=== PATIENT | male | born 1960 | race Caucasian/White ===

== ENCOUNTER 2018-05-14 14:55 | Inpatient (IN) | payer SELFPAY ==
[~2018-05-14] VITALS: Ht 172.7 cm; Wt 66.5 kg
[~2018-05-14 14:55] MED LIST: AZIT250 PO; CALCAVITDA PO; CETI5 PO; CHOL10002; CREON DR 12,001 EACH PO; GABA300T24; GENT.3OPO TOP; Glucose4 GM PO; HYDACE10B PO; INS70/30PN SC; LOSA25 PO; OFLO.3OPSO BOTHEYES; OMEPRAZOLE MAGN20 MG PO; SERT100 PO; SODCHL2SO BOTHEYES
[2018-05-14 15:35] LABS: BASOPHILS ABSOLUTE AUTO 0.03 K/mm3 (0.00-0.23); BASOPHILS PERCENT AUTO 1 % (0-2); EOSINOPHILS ABSOLUTE AUTO 0.07 K/mm3 (0.00-0.68); EOSINOPHILS PERCENT AUTO 1 % (0-6); Hematocrit 31.5 % (37.0-53.0); IMMATURE GRAN ABSOLUTE AUTO 0.05 K/mm3 (0.00-0.10); IMMATURE GRAN PERCENT AUTO 1 % (0-1); LYMPHOCYTES ABSOLUTE AUTO 1.08 K/mm3 (0.84-5.20); LYMPHOCYTES PERCENT AUTO 19 % (21-46); MONOCYTES PERCENT AUTO 12 % (4-13); Mean Corpuscular HGB 29.3 pg (26.0-34.0); Mean Corpuscular HGB Conc 28.6 g/dL (31.5-36.5); Mean Corpuscular Volume 103 fL (80-100); Mean Platelet Volume 11.4 fL (9.1-12.4); NEUTROPHILS ABSOLUTE AUTO 3.76 K/mm3 (1.96-9.15); NEUTROPHILS PERCENT AUTO 66 % (41-73); Platelet Count 129 K/mm3 (150-400); RDW Coefficient Variation 13.5 % (11.7-14.2); RDW Standard Deviation 50.9 fL (35.1-46.3); Red Blood Cell Count 3.07 M/mm3 (4.30-5.90); White Blood Cell Count 5.69 K/mm3 (4.00-11.30)
[2018-05-14] MEDS ORDERED: ASPI81CH PO (15:52)
[2018-05-14] MEDS ORDERED: INSULANPEN SC (15:53)
[2018-05-14 15:54] LABS: Alanine Aminotransfer (ALT/SGP 31 U/L (12-78); Albumin, Blood 2.1 g/dL (3.4-5.0); Albumin/Globulin Ratio 0.5 (0.8-1.8); Alk Phos 265 U/L (50-136); Anion Gap 3 mmol/L (6-16); Aspartate Aminotrans (AST/SGOT 33 U/L (12-37); Bilirubin, Total 0.3 mg/dL (0.1-1.0); Blood Urea Nitrogen 26 mg/dL (8-24); Bun/Creatinine Ratio 23.4 (12.0-20.0); CO2, Blood 32 mmol/L (21-32); Calcium, Blood 8.4 mg/dL (8.5-10.1); Chloride, Blood 107 mmol/L (98-108); Creatinine, Blood 1.11 mg/dL (0.60-1.20); Globulin, Blood 4.3 g/dL (2.2-4.0); Glomerular Filtration Rate >60 (60-); Glucose, Blood 305 mg/dL (70-99); Potassium, Blood 5.5 mmol/L (3.5-5.5); Sodium, Blood 142 mmol/L (136-145); Total Protein, Blood 6.4 g/dL (6.4-8.2); Troponin I 0.022 ng/mL (0.000-0.040)
[2018-05-14] MEDS ORDERED: ALBU90OI61 INH (15:54)
[2018-05-14] MEDS ORDERED: Coreg12.5 MG PO (15:55)
[2018-05-14] MEDS ORDERED: ZYRTEC10 M1 PO (15:56)
[2018-05-14] MEDS ORDERED: PERIDEX15 ML MM (15:56)
[2018-05-14] MEDS ORDERED: MAGOXI400 PO (15:57)
[2018-05-14] MEDS ORDERED: MORP20L (15:59)
[2018-05-14] MEDS ORDERED: THERA1 EACH PO (15:59)
[2018-05-14] MEDS ORDERED: CREON DR 6,0001 EACH PO ×2 (16:00→20:56)
[2018-05-14] MEDS ORDERED: SERT100 PO (16:00)
[2018-05-14] MEDS ORDERED: TIOT18 INH (16:01)
[2018-05-14] MEDS ORDERED: BUDE6HFA INH (16:01)
--- NOTE | 2018-05-14 18:48 | NUR ---
ADMIT: PT ADMITTED TO PCU 16 FROM ED. PT ALERT, COOPERATIVE, ON 5L/NC. PT DENIES DYSPNEA AT THIS TIME AND REQUESTS TO STAY OFF THE BIPAP FOR RIGHT NOW. EDUCATED OIL DELIVERER LIGHT AND HOW TO CALL FOR ASSISTANCE IF HE STARTS TO FEEL SHORT OF BREATH. NO FAMILY AT THE BEDSIDE AT THIS TIME. WILL REPORT OFF TO NOC SHIFT.
[2018-05-14 19:22] LABS: Influenza A Negative (NEGATIVE); Influenza B Negative (NEGATIVE)
[2018-05-14] MEDS ORDERED: MORP20L PO ×2 (21:01→21:03)
--- NOTE | 2018-05-14 21:42 | NUR ---
ASSUMED CARE OF PATIENT AT APPROXIMATELY 1910 FROM SONIA Herron RN. PATIENT ALERT AND ORIENTED TO SELF AND ONLY. PATIENT UNABLE TO STATE DATE, EVENT OR LOCATION. PATIENT NOT A GOOD HISTORIAN. CHARGE ATTEMPTED TO CALL ON CELL PHONE BUT NO ANSWER. THIS RN CALLED LATER AND WAS ABLE TO ASSIST IN BED REC. PATIENT REPORTS PAIN IN HIS BACK 7/10 AND REPORTS NORMALLY 6/10 AND CAN TOLERATE 5/10. PATIENT DENIES NUMBNESS, TINGLING, DIZZINES AND NAUSEA. ADMISSION COMPLETE. NSR W/ PACS ON TELE. PATIENT WAS ON 4LPM VIA NC AT SHIFT CHANGE; TITRATED TO BASELINE USE OF 2LPM VIA NC; BIPAP IN ROOM BUT PATIENT STATES HE NEEDS A BREAK. URINARY CATHETER DRAINING CLEAR YELLOW URINE. ATTENDS IN PLACE; PATIENT REPORTS WHEN HE HAS A BM "IT GOES ON THE FLOOR SOMETIMES". 2X PIV S/L. PATIENT CURRENTLY RESTING IN BED; CALL LIGHT IN REACH; BED IN LOWEST POSISTION; BED ALARM ON; WILL CONTINUE TO MONITOR AND ASSESS UNTIL END OF SHIFT.
[2018-05-15 03:53] LABS: BASOPHILS ABSOLUTE AUTO 0.01 K/mm3 (0.00-0.23); BASOPHILS PERCENT AUTO 0 % (0-2); EOSINOPHILS PERCENT AUTO 0 % (0-6); Hematocrit 29.3 % (37.0-53.0); Hemoglobin 8.4 g/dL (13.5-17.5); IMMATURE GRAN ABSOLUTE AUTO 0.02 K/mm3 (0.00-0.10); IMMATURE GRAN PERCENT AUTO 1 % (0-1); LYMPHOCYTES ABSOLUTE AUTO 0.33 K/mm3 (0.84-5.20); LYMPHOCYTES PERCENT AUTO 10 % (21-46); MONOCYTES ABSOLUTE AUTO 0.07 K/mm3 (0.16-1.47); MONOCYTES PERCENT AUTO 2 % (4-13); Mean Corpuscular HGB 28.7 pg (26.0-34.0); Mean Corpuscular HGB Conc 28.7 g/dL (31.5-36.5); Mean Platelet Volume 10.9 fL (9.1-12.4); NEUTROPHILS ABSOLUTE AUTO 2.83 K/mm3 (1.96-9.15); NEUTROPHILS PERCENT AUTO 87 % (41-73); Platelet Count 131 K/mm3 (150-400); RDW Coefficient Variation 13.2 % (11.7-14.2); RDW Standard Deviation 48.5 fL (35.1-46.3); Red Blood Cell Count 2.93 M/mm3 (4.30-5.90); White Blood Cell Count 3.26 K/mm3 (4.00-11.30)
[2018-05-15 04:12] LABS: Mean Corpuscular Volume 100 fL (80-100)
[2018-05-15 04:20] LABS: Anion Gap 8 mmol/L (6-16); Blood Urea Nitrogen 29 mg/dL (8-24); Bun/Creatinine Ratio 27.6 (12.0-20.0); CO2, Blood 30 mmol/L (21-32); Calcium, Blood 8.4 mg/dL (8.5-10.1); Chloride, Blood 99 mmol/L (98-108); Creatinine, Blood 1.05 mg/dL (0.60-1.20); Glomerular Filtration Rate >60 (60-); Potassium, Blood 5.6 mmol/L (3.5-5.5); Sodium, Blood 137 mmol/L (136-145)
[2018-05-15 04:21] LABS: Troponin I <0.015 ng/mL (0.000-0.040)
[2018-05-15 04:24] LABS: Glucose, Blood 629 mg/dL (70-99)
--- NOTE | 2018-05-15 04:46 | NUR ---
GLUCOSE 629; CALLED DR. ODONNELL; ORDERS RECIEVED TO GIVE 15 UNITS NOVOLOG NOW AND RECHECK CBG AGAIN IN ONE HOUR. PHARMACIST CAROLYN REPORTED HUMALOG SUB FOR NOVOLOG.
--- NOTE | 2018-05-15 06:05 | NUR ---
CBG >500; CALLED LAB FOR BLOOD DRAW FOR CBG >500; MARGI REPORTED LAB WILL COME DRAW
[2018-05-15 07:05] LABS: Glucose, Blood 606 mg/dL (70-99)
--- NOTE | 2018-05-15 09:00 | NUR ---
TRANSFER TO ICU Assumed care of pt at 0700. Bedside report recieved from Mayra DUMONT. Pt on 2 LPM NC. Received notification of criticially high blood glucose. Call placed to Dr Dyer. Provider stated she would review chart and place orders. Orders recieved for insulin drip. Pt transferred to ICU. Updated pt on plan of care. Telephone report given to Inga DUMONT. This RN placed call to pt's spouse, however she did not answer. Unable to leave message as her "mailbox is full". Pt departed from PCU at 0830.
--- NOTE | 2018-05-15 09:48 | NUR ---
ARRIVAL TO ICU 0835 - PT ARRIVES FROM PCU TO ICU AT THIS TIME. A/O X 3, CALM, COOPERATIVE AND ANSWERING QUESTIONS APPROPRIATELY. DENIES PAIN AT THIS TIME. VSS. NSR, HR 60S AND BP STABLE. MODI CATH SECURED AND PATENT. PT AMBULATED FROM PCU BED INTO ICU BED. SENIOR CONSTRUCTION PROJECT MANAGER BEDSIDE SHORTLY AFTER ARRIVAL. ARRIVES WITH IVS SALINE LOCKED. BLOOD SUGAR CHECKED AT ARRIVAL AND READS HIGH; AWAITING BOOKKEEPING MANAGER FOR DRAW. INSULIN GTT STARTED AT 4 UNITS/HR AT 0900; WILL ADJUST BASED ON LAB RESULT. CALL LIGHT WITHIN REACH. RESPIRATORY PANEL SENT TO LAB. PT AWARE OF NPO. WILL CONTINUE TO MONITOR.
[2018-05-15 10:10] LABS: Glucose, Blood 587 mg/dL (70-99)
[2018-05-15 11:01] LABS: Adenovirus Not Detected (NOT DETECT); Bordetella pertussis Not Detected (NOT DETECT); Chlamydophila pneumoniae Not Detected (NOT DETECT); Coronavirus 229E Not Detected (NOT DETECT); Coronavirus HKU1 Not Detected (NOT DETECT); Coronavirus NL63 Not Detected (NOT DETECT); Coronavirus OC43 Not Detected (NOT DETECT); Human Metapneumovirus Not Detected (NOT DETECT); Human Rhinovirus/Enterovirus Not Detected (NOT DETECT); Influenza A Not Detected (NOT DETECT); Influenza A/2009-H1 Not Detected (NOT DETECT); Influenza A/H1 Not Detected (NOT DETECT); Influenza A/H3 Not Detected (NOT DETECT); Influenza B Not Detected (NOT DETECT); Mycoplasma pneumoniae Not Detected (NOT DETECT); Parainfluenza Virus 1 Not Detected (NOT DETECT); Parainfluenza Virus 2 Not Detected (NOT DETECT); Parainfluenza Virus 3 Not Detected (NOT DETECT); Parainfluenza Virus 4 Not Detected (NOT DETECT); Respiratory Syncytial Virus Not Detected (NOT DETECT)
--- NOTE | 2018-05-15 11:57 | NUR ---
REASSESSMENT PT REMAINS A/O X 3, CALM AND COOPERATIVE. VSS. AFEBRILE. SITTING UP WATCHING TV OR SLEEPING. INSULIN GTT REMAINS INFUSING; CURRENTLY AT 3 UNITS/HR AND TITRATING ABLE. DENIES PAIN AT THIS TIME. CALL LIGHT WITHIN REACH. WILL CONTINUE TO MONITOR.
[2018-05-15 12:41] LABS: Anion Gap 2 mmol/L (6-16); Blood Urea Nitrogen 28 mg/dL (8-24); Bun/Creatinine Ratio 28.2 (12.0-20.0); CO2, Blood 33 mmol/L (21-32); Calcium, Blood 8.6 mg/dL (8.5-10.1); Chloride, Blood 99 mmol/L (98-108); Creatinine, Blood 0.99 mg/dL (0.60-1.20); Glomerular Filtration Rate >60 (60-); Glucose, Blood 458 mg/dL (70-99); Sodium, Blood 134 mmol/L (136-145)
--- NOTE | 2018-05-15 16:48 | NUR ---
Per admit trigger, I met with Mr. Malloy and his regarding an Advanced Directive. They did not see a need for this document. Mrs. Malloy expressed concern with lack of clear answers for Aditya's numerous recent hospitalizations. Advised writing down questions and asking for clear answers from physicians. I will remain available.
--- NOTE | 2018-05-15 18:13 | NUR ---
SHIFT SUMMARY PT ARRIVED FROM PCU AT 0830. INSULIN GTT STARTED SHORTLY AFTER AND INFUSED UNTIL 1730 WHEN BLOOD SUGAR DECREASED TO 250. AFEBRILE AND VSS ENTIRE SHIFT. LANTUS 10 UNITS GIVEN AND PT NOW EATING DINNER TRAY. DENIES NAUSEA. MODI CATHETER REMOVED. PT IN NAD. WILL GIVE BEDSIDE, HANDOFF REPORT TO SHARAN DUMONT.
--- NOTE | 2018-05-15 19:15 | NUR ---
ASSUMING CARE OF PT AT THIS TIME. PT REPORT RECEIVED AT BEDSIDE WITH OFFGOING NURSE, SHEILA DUMONT. PT LAYING IN BED, WATCHING TELEVISION UPON ENTERING THE ROOM. VS STABLE - SEE VS FS. PT DOES NOT APPEAR TO BE IN DISTRESS AT THIS TIME. WILL REVIEW PLAN OF CARE.
--- NOTE | 2018-05-15 19:30 | NUR ---
ASSESSMENT PT CALM, QUIET, COOPERATIVE, USING CALL LIGHT APPROPRIATELY, A&O EXCEPT TO DATE/TIME/PLACE, SLOW TO RESPOND, FLAT AFFECT, RESPONDS TO VERBAL STIMULI, SPONT OPENS EYES, TALKS AND ANSWERS QUESTIONS APPROPRIATELY. SENSATION INTACT. DENIES N/T. PT MARTINEZ. NO WEAKNESS NOTED. PT STATES STRENGTH IS AT BASELINE. PT REPOSITIONS SELF IN BED. 1-2P SBA WITH AMBULATION. PT DENIES USING A WALKER OR CANE AT HOME. PT DENIES PAIN/DISCOMFORT. NO S/SX OF PAIN/DISCOMFORT NOTED. LUNGS CLEAR, LOWER LOBES DIMINIHSED. PT ON 2L NC. OXY SAT >90%. RR 20'S. DENIES SOB. NO COUGHING. PT ON 2-3L NC AT HOME. SHALLOW BREATHING. AFEBRILE. NSR. HR 70'S. BP STABLE - SEE VS FS. STRONG PULSES. WARM, PINK SKIN. EDEMA BLE'S. ACTIVE BT X4 QUADRANTS. ABD SOFT, NONTENDER, MILD DIST (PT STATES ABD DIST IS NORMAL). NO N/V. NO BM. PER REPORT - F/C D/C THIS AM. PT'S URINAL AT BEDSIDE. NO UO. ATTENDS IN PLACE. PIV X2 - SL. PT TOLERATING ADA DIET AND PO FLUIDS.
[2018-05-16 03:43] LABS: BASOPHILS PERCENT AUTO 0 % (0-2); EOSINOPHILS PERCENT AUTO 0 % (0-6); Hematocrit 26.1 % (37.0-53.0); Hemoglobin 7.9 g/dL (13.5-17.5); IMMATURE GRAN ABSOLUTE AUTO 0.03 K/mm3 (0.00-0.10); IMMATURE GRAN PERCENT AUTO 1 % (0-1); LYMPHOCYTES ABSOLUTE AUTO 0.39 K/mm3 (0.84-5.20); LYMPHOCYTES PERCENT AUTO 7 % (21-46); MONOCYTES ABSOLUTE AUTO 0.48 K/mm3 (0.16-1.47); MONOCYTES PERCENT AUTO 8 % (4-13); Mean Corpuscular HGB 28.8 pg (26.0-34.0); Mean Corpuscular HGB Conc 30.3 g/dL (31.5-36.5); Mean Platelet Volume 11.5 fL (9.1-12.4); NEUTROPHILS ABSOLUTE AUTO 4.84 K/mm3 (1.96-9.15); NEUTROPHILS PERCENT AUTO 84 % (41-73); Platelet Count 178 K/mm3 (150-400); RDW Coefficient Variation 13.2 % (11.7-14.2); Red Blood Cell Count 2.74 M/mm3 (4.30-5.90); White Blood Cell Count 5.74 K/mm3 (4.00-11.30)
[2018-05-16 03:44] LABS: Mean Corpuscular Volume 95 fL (80-100)
[2018-05-16 03:59] LABS: Albumin, Blood 1.9 g/dL (3.4-5.0); Anion Gap 6 mmol/L (6-16); Blood Urea Nitrogen 32 mg/dL (8-24); Bun/Creatinine Ratio 36.8 (12.0-20.0); CO2, Blood 32 mmol/L (21-32); Calcium, Blood 8.4 mg/dL (8.5-10.1); Chloride, Blood 99 mmol/L (98-108); Creatinine, Blood 0.87 mg/dL (0.60-1.20); Glomerular Filtration Rate >60 (60-); Glucose, Blood 466 mg/dL (70-99); Phosphorus, Blood 1.5 mg/dL (2.5-4.9); Potassium, Blood 4.6 mmol/L (3.5-5.5); Sodium, Blood 137 mmol/L (136-145)
--- NOTE | 2018-05-16 04:33 | NUR ---
SHIFT ASSESSMENT NO ACUTE CHANGES NOTED T/O SHIFT. PT CALM, QUIET, COOPERATIVE, USES CALL LIGHT APPROPRIATELY, A&O EXCEPT TO DATE/TIME/PLACE, SLIGHT CONFUSION, SLOW TO RESPOND, FLAT AFFECT, RESPONDS TO VERBAL STIMULI, SPONT OPENS EYES, TALKS AND ANSWERS QUESTIONS APPROPRIATELY. PT SLEPT APPROXIMATELY 6 HR T/O SHIFT. SENSATION INTACT. DENIES N/T. PT MARTINEZ. NO WEAKNESS NOTED. PT STATES STRENGTH IS AT BASELINE. PT REPOSITIONS SELF IN BED. 1-2 SBA WITH AMBUALTION. 1P SBA TO STAND AT EDGE OF BED WHEN VOIDING. PT DENIES USING A WALKER OR CANE AT HOME. PT DENIED PAIN/DISCOMFORT T/O SHIFT. NO S/SX OF PAIN/DISCOMFORT NOTED. LUNGS CLEAR, LOWER LOBES DIMINISHED. PT ON 2L NC. OXY SAT >90%. RR 16 TO 20'S. DENIES SOB. NO COUGHING. PT ON 2-3L NC AT HOME. SHALLOW BREAHTING. AFEBRILE. NSR WITH OCC PAC'S AND PVC'S NOTED. HR 70'S TO 90'S. BP STABLE - SEE VS FS. STRONG PULSES. WAMR, PINK SKIN. EDEMA BLE'S. ACTIVE BT X4 QUADRANTS. ABD SOFT, NONTENDER, MILD DIST (PT STATES ABD DIST IS NORMAL). NO N/V. NO BM T/O SHIFT. PT TOLERATES ADA DIET AND PO FLUIDS. PT VOIDS IN URINAL - DARK YELLOW URINE NOTED. PIV X1 - SL. AM LABS COMPLETED. WAITING FOR PHONE CALL BACK FROM DR. ODONNELL AT THIS TIME REGARDING AM LABS. WILL CONT TO MONITOR PT AND WILL PROVIDE BEDSIDE REPORT TO ONCOMING NURSE THIS AM.
--- NOTE | 2018-05-16 04:45 | NUR ---
DR. BELLE ODONNELL CALLED ICU AT THIS TIME. INFORMED. DR. ODONNELL OF AM LABS. DR. ODONNELL ORDERED SODIUM PHOS 20 MM IVPB, LANTUS 15 UNITS SC DAILY WITH THE FIRST DOSAGE NOW, AND HUMULIN R SC CRISTINA NOW. WAITING FOR VERIFICATION OF MEDICATIONS FROM PHARMACY AT THIS TIME. WAITING FOR SODIUM PHOS FROM PHARMACY AT THIS TIME.
[2018-05-16 08:53] LABS: Percent Saturation 20.9 % (20.0-50.0)
[2018-05-16 12:06] LABS: Hematocrit 25.6 % (37.0-53.0); Hemoglobin 7.9 g/dL (13.5-17.5)
--- NOTE | 2018-05-16 15:25 | NUR ---
TRANSFER SUMMARY PATIENT ALERT AND ORIENTED X3. RESP E/U ON 2 LPM (HOME DOSE) OXYGEN. NO ACUTE DISTRESS T/O SHIFT. TRUMAN IN TO SEE PATIENT THIS AM AND TITRATED INSULIN SQ - WILL CONTINUE TO MONITOR AC/HS AND GIVE INSULIN PER EMAR. VSS. REPORTED OFF TO THADDEUS Rivers RN ON MEDICAL FLOOR - PATIENT HAS BEEN MED NO TELE IN ICU ROOM 15 TO THIS POINT. WILL TRANSPORT PATIENT VIA WHEEL CHAIR TO ROOM 312 ON MEDICAL UNIT.
--- NOTE | 2018-05-16 18:55 | NUR ---
SHIFT SUMMARY. 1550 PT TRANSFERED TO MEDICAL FLOOR, PT SELF TRANSFERED TO BED WITHOUT ISSUE. PT SLEPT MOST OF THE TIME AFTER CARE ASSUMED. CBG IMPROVED THIS EVENING TO 173. PT DENIES PAIN, N/V. MILD SOB WITH EXERTION TO THE BATHROOM. ON 2L O2 NC. NO NEW CHANGES.
[2018-05-17 05:31] LABS: BASOPHILS ABSOLUTE AUTO 0.01 K/mm3 (0.00-0.23); BASOPHILS PERCENT AUTO 0 % (0-2); EOSINOPHILS ABSOLUTE AUTO 0.17 K/mm3 (0.00-0.68); EOSINOPHILS PERCENT AUTO 2 % (0-6); Hematocrit 29.3 % (37.0-53.0); Hemoglobin 8.9 g/dL (13.5-17.5); IMMATURE GRAN ABSOLUTE AUTO 0.07 K/mm3 (0.00-0.10); IMMATURE GRAN PERCENT AUTO 1 % (0-1); LYMPHOCYTES ABSOLUTE AUTO 1.07 K/mm3 (0.84-5.20); LYMPHOCYTES PERCENT AUTO 10 % (21-46); MONOCYTES ABSOLUTE AUTO 1.23 K/mm3 (0.16-1.47); MONOCYTES PERCENT AUTO 12 % (4-13); Mean Corpuscular HGB 28.3 pg (26.0-34.0); Mean Corpuscular HGB Conc 30.4 g/dL (31.5-36.5); Mean Corpuscular Volume 93 fL (80-100); Mean Platelet Volume 10.5 fL (9.1-12.4); NEUTROPHILS ABSOLUTE AUTO 7.85 K/mm3 (1.96-9.15); NEUTROPHILS PERCENT AUTO 76 % (41-73); Platelet Count 251 K/mm3 (150-400); RDW Coefficient Variation 13.5 % (11.7-14.2); RDW Standard Deviation 45.3 fL (35.1-46.3); Red Blood Cell Count 3.15 M/mm3 (4.30-5.90)
[2018-05-17 05:43] LABS: Albumin, Blood 2.2 g/dL (3.4-5.0); Anion Gap 3 mmol/L (6-16); Blood Urea Nitrogen 31 mg/dL (8-24); Bun/Creatinine Ratio 46.2 (12.0-20.0); CO2, Blood 36 mmol/L (21-32); Calcium, Blood 9.2 mg/dL (8.5-10.1); Chloride, Blood 103 mmol/L (98-108); Creatinine, Blood 0.67 mg/dL (0.60-1.20); Glomerular Filtration Rate >60 (60-); Glucose, Blood 55 mg/dL (70-99); Phosphorus, Blood 1.3 mg/dL (2.5-4.9); Potassium, Blood 4.1 mmol/L (3.5-5.5); Sodium, Blood 142 mmol/L (136-145)
--- NOTE | 2018-05-17 07:13 | NUR ---
no coverage for r insulin, long lasting given as prescribed, call light in reach, 3L 02 via bipap, saline locked, walking rounds completed with day staff, alert at baseline
--- NOTE | 2018-05-17 08:52 | NUR ---
APRON WORKER REPORTED THE PATIENT'S BLOOD GLUCOSE WAS 40 AT 0711. ORANGE JUICE AND A YOGURT WERE GIVEN TO THE PATIENT, WHICH HE FINISHED. AT 0804, THE PATIENT'S BLOOD GLUCOSE READ 94.
--- NOTE | 2018-05-17 13:39 | NUR ---
THIS PT IS ALERT BUT CONFUSED. HIS BLOOD GLUCOSE WAS 40 THIS MORNING, HE WAS GIVEN AN ORANGE JUICE AND YOGURT. AFTER EATING HIS SNACK, HIS BLOOD GLUCOSE FRANCE TO 96. BEFORE LUNCH HIS BLOOD GLUCOSE WAS 194. HE IS WEARING HIS BIPAP NOW WITH CONTINUOUS PULSE OXIMETRY. HE HAS BEEN UP FOR BREAKFAST AND LUNCH. NO COMPLAINTS OF PAIN. HE IS A ONE PERSON ASSIST TO THE BATHROOM. DR. LAUGHLIN WANTS TO KEEP HIM ANOTHER NIGHT TO SO WE CAN MONITOR HIS BLOOD GLUCOSE. WILL CONTINUE TO MONITOR.
--- NOTE | 2018-05-17 17:21 | NUR ---
PT IS ALERT BUT CONFUSED. HE DOES NOT KNOW THE DATE OR TIME. HE KNOWS HE IS AT THE [facility] IN [place]. HE IS ON 2L O2 VIA BIPAP. HE HAS A PRESSURE ULCER ON HIS RIGHT BUTTOCKS, PHOTOS TAKEN. DR. LAUGHLIN WANTS TO KEEP HIM ANOTHER NIGHT TO SORT OUT HIS INSULIN AND GET HIS BLOOD GLUCOSE UNDER CONTROL. WILL CONTINUE TO MONITOR.
[2018-05-18 04:56] LABS: BASOPHILS ABSOLUTE AUTO 0.01 K/mm3 (0.00-0.23); BASOPHILS PERCENT AUTO 0 % (0-2); EOSINOPHILS ABSOLUTE AUTO 0.18 K/mm3 (0.00-0.68); EOSINOPHILS PERCENT AUTO 3 % (0-6); Hematocrit 26.6 % (37.0-53.0); Hemoglobin 8.1 g/dL (13.5-17.5); IMMATURE GRAN ABSOLUTE AUTO 0.03 K/mm3 (0.00-0.10); IMMATURE GRAN PERCENT AUTO 1 % (0-1); LYMPHOCYTES ABSOLUTE AUTO 0.93 K/mm3 (0.84-5.20); LYMPHOCYTES PERCENT AUTO 14 % (21-46); MONOCYTES ABSOLUTE AUTO 0.64 K/mm3 (0.16-1.47); MONOCYTES PERCENT AUTO 10 % (4-13); Mean Corpuscular HGB 28.9 pg (26.0-34.0); Mean Corpuscular HGB Conc 30.5 g/dL (31.5-36.5); Mean Corpuscular Volume 95 fL (80-100); Mean Platelet Volume 10.4 fL (9.1-12.4); NEUTROPHILS ABSOLUTE AUTO 4.66 K/mm3 (1.96-9.15); NEUTROPHILS PERCENT AUTO 72 % (41-73); Platelet Count 184 K/mm3 (150-400); RDW Coefficient Variation 13.4 % (11.7-14.2); RDW Standard Deviation 47.4 fL (35.1-46.3); White Blood Cell Count 6.45 K/mm3 (4.00-11.30)
[2018-05-18 05:14] LABS: Albumin, Blood 1.9 g/dL (3.4-5.0); Anion Gap 5 mmol/L (6-16); Blood Urea Nitrogen 20 mg/dL (8-24); Bun/Creatinine Ratio 32.9 (12.0-20.0); CO2, Blood 34 mmol/L (21-32); Calcium, Blood 8.8 mg/dL (8.5-10.1); Chloride, Blood 102 mmol/L (98-108); Creatinine, Blood 0.61 mg/dL (0.60-1.20); Glomerular Filtration Rate >60 (60-); Glucose, Blood 239 mg/dL (70-99); Phosphorus, Blood 2.3 mg/dL (2.5-4.9); Potassium, Blood 4.2 mmol/L (3.5-5.5); Sodium, Blood 141 mmol/L (136-145)
--- NOTE | 2018-05-18 05:39 | NUR ---
SHIFT SUMMARY PT SLEPT WELL, BIPAP ON DURING THE NIGHT. PT WITH C/O'S NAUSEA THIS AM, ZOFRAN GIVEN IVP. USES URINAL AT BEDSIDE DURING THE NIGHT. PT ALSO REQUESTING BLOOD SUGAR TO BE CHECKED HE FEELS LOW, CBG OVER 200. WILL CONTINUE TO MONITOR.
--- NOTE | 2018-05-18 10:57 | NUR ---
PT IS ALERT. HE IS NOT ORIENTED TO DATE/TIME. HIS SPOUSE CALLED THE RN AND SAID SHE WILL COME IN TO VISIT THE PATIENT TODAY. DR. LAUGHLIN ORDERED A BLOOD DRAW TO TEST THE PT'S HGB LEVEL. SHE STATED IF SHE IS SATISFIED WITH THE RESULT SHE COULD DISCHARGE HIM TODAY. 2L O2 VIA NC AND BIPAP NEEDED. NO COMPLAINTS OF PAIN. UP IN BED FOR MEALS. WILL CONTINUE TO MONITOR.
[2018-05-18 11:26] LABS: Hematocrit 25.8 % (37.0-53.0); Hemoglobin 7.8 g/dL (13.5-17.5)
--- NOTE | 2018-05-18 12:30 | NUR ---
LUNCH TIME BLOOD GLUCOSE READING ISNT SHOWING UP ON [employer]. RN VERIFIED THAT THE PATIENT'S BLOOD GLUCOSE WAS 367. WILL ADMINISTER INSULIN.
--- NOTE | 2018-05-18 13:20 | NUR ---
DR LAUGHLIN NOTIFIED OF DECREASE OF HGB TO 7.8.
--- NOTE | 2018-05-18 18:09 | NUR ---
PT IS ON 2L O2 VIA NC. HE IS UP TO THE SIDE OF THE BED FOR DINNER. HE IS COOPERATIVE WITH CARE. HE IS RECIEVING A BLOOD TRANSFUSION RIGHT NOW, BECAUSE HIS LAB SHOWED HGB OF 7.3. THERE IS A MEPILEX IN PLACE ON THE WOUND ON HIS BUTTOCKS. NO COMPLAINTS AT THIS TIME, WILL CONTINUE TO MONITOR.
[2018-05-19 04:42] LABS: BASOPHILS ABSOLUTE AUTO 0.01 K/mm3 (0.00-0.23); BASOPHILS PERCENT AUTO 0 % (0-2); EOSINOPHILS ABSOLUTE AUTO 0.25 K/mm3 (0.00-0.68); EOSINOPHILS PERCENT AUTO 3 % (0-6); Hematocrit 27.9 % (37.0-53.0); Hemoglobin 8.7 g/dL (13.5-17.5); IMMATURE GRAN ABSOLUTE AUTO 0.06 K/mm3 (0.00-0.10); IMMATURE GRAN PERCENT AUTO 1 % (0-1); LYMPHOCYTES ABSOLUTE AUTO 1.02 K/mm3 (0.84-5.20); LYMPHOCYTES PERCENT AUTO 14 % (21-46); MONOCYTES ABSOLUTE AUTO 0.56 K/mm3 (0.16-1.47); MONOCYTES PERCENT AUTO 8 % (4-13); Mean Corpuscular HGB Conc 31.2 g/dL (31.5-36.5); Mean Corpuscular Volume 93 fL (80-100); Mean Platelet Volume 10.4 fL (9.1-12.4); NEUTROPHILS PERCENT AUTO 74 % (41-73); Platelet Count 177 K/mm3 (150-400); RDW Coefficient Variation 14.6 % (11.7-14.2); RDW Standard Deviation 49.2 fL (35.1-46.3)
[2018-05-19 05:00] LABS: Albumin, Blood 1.8 g/dL (3.4-5.0); Anion Gap 4 mmol/L (6-16); Blood Urea Nitrogen 24 mg/dL (8-24); Bun/Creatinine Ratio 25.9 (12.0-20.0); CO2, Blood 35 mmol/L (21-32); Calcium, Blood 8.5 mg/dL (8.5-10.1); Chloride, Blood 102 mmol/L (98-108); Creatinine, Blood 0.93 mg/dL (0.60-1.20); Glomerular Filtration Rate >60 (60-); Glucose, Blood 189 mg/dL (70-99); Phosphorus, Blood 3.4 mg/dL (2.5-4.9); Potassium, Blood 4.8 mmol/L (3.5-5.5); Sodium, Blood 141 mmol/L (136-145)
--- NOTE | 2018-05-19 05:27 | NUR ---
SHIFT SUMMARY PT FINISHED UP 1 UNIT PRBC'S THIS SHIFT, NO REACTION NOTED. PT SLEPT WELL DURING THE NIGHT. CPAP ON T/O NIGHT. PT OFFERS NO C/O'S. WILL CONTINUE TO MONITOR.
[2018-05-19 12:10] LABS: Hematocrit 28.2 % (37.0-53.0); Hemoglobin 8.7 g/dL (13.5-17.5)
--- NOTE | 2018-05-19 15:46 | NUR ---
SECOND ATTEMPT TO CALL TO NOTIFY HER OF PT DISCHARGE AT THIS TIME. NO ANSWER, NO MESSAGE LEFT PER SPOUSE REQUEST
[2018-05-19] MEDS ORDERED: ALBU2.5V5 NEB (18:08)
--- NOTE | 2018-05-19 19:34 | NUR ---
SHIFT SUMMARY PT AXO, PLEASANT AND COOPERATIVE WITH CARE. NO ACUTE CHANGES. PT ON CONT PULSE OX, 88-97% ON 2L. DESATING WITH EXERTION. VSS. PT TO DISCHARGE JUST AFTER SHIFT CHANGE. THIS NURSE COMPLETED DISCHARGE PAPERWORK THOUGH PT DID NOT KNOW WHO HIS SUPERVISOR HARD CANDY WAS, SO THIS NURSE PASSED ON TO SEO CONSULTANT NURSE TO TRY TO FIND OUT WHO SUPERVISOR HARD CANDY IS FOR ACCURATE REFERRAL. PATIENT'S SPOUSE WAS NOT HERE TO CONVENTIONAL MACHINIST PT UNTIL ABOUT 1800 IN WHICH NURSE NEEDED TO INQUIRE ABOUT SUPERVISOR HARD CANDY. SEO CONSULTANT NURSE TO COMPLETE DISCHARGE. IV DC'D BELONGINGS RETURNED.
--- NOTE | 2018-05-19 21:55 | NUR ---
discharge note: PATIENT DISCHARGED VIA WHEEL CHAIR TO HOME WITH . ACCOMPANIED TO CAR BY SHERICE QUEVEDO. PATIENT AND AGREED TO CALL PRIMARY CARE PHYSICIAN AND SALES AND BUSINESS DEVELOPMENT MANAGER DR GUNN WITHIN 72 HOURS FOR FOLLOWUP REFERRAL. 1939 HRS
== END 2018-05-19 19:51 | disposition home or self-care (01) | DRG 189 ==
LOC: ER 14:55 → PCU 17:21 → ICUW 18:38 → PCU 18:40 → ICUW 05-15 08:14 → MEDS 05-16 15:58
PROVIDERS: Family Medicine; Physician Assistant; ADMIT Internal Medicine
PROC: 30233N1 Transfusion of Nonautologous Red Blood Cells into Peripheral Vein, Percutaneous Approach (ICD-10-PCS; principal; 2018-05-14)
PROC: 5A09457 Assistance with Respiratory Ventilation, 24-96 Consecutive Hours, Continuous Positive Airway Pressure (ICD-10-PCS; 2018-05-14)
DX: J96.01 Acute respiratory failure with hypoxia (principal); G92 Toxic encephalopathy; J44.1 Chronic obstructive pulmonary disease with (acute) exacerbation; I50.22 Chronic systolic (congestive) heart failure; D61.818 Other pancytopenia; Z51.5 Encounter for palliative care; L89.312 Pressure ulcer of right buttock, stage 2; T40.605A Adverse effect of unspecified narcotics, initial encounter; E11.65 Type 2 diabetes mellitus with hyperglycemia; Z79.4 Long term (current) use of insulin; D63.8 Anemia in other chronic diseases classified elsewhere; I11.0 Hypertensive heart disease with heart failure; I27.20 Pulmonary hypertension, unspecified; Z99.81 Dependence on supplemental oxygen; Z87.891 Personal history of nicotine dependence; E87.5 Hyperkalemia
CPT/HCPCS: 36415; 36430; 51702; 71045; 80048; 80053; 80069; 82607; 82728; 82746; 82947; 83036; 83540; 83550; 83605; 83880; 84145; 84484; 85014; 85018; 85025; 86850; 86900; 86901; 86923; 87040; 87486; 87581; 87633; 87798; 87804; 93005; 93010; 93306; 94640; 94660; 94762; 96374-59; 96375-59; 99285-25; C9113; J1650; J1815; J2405; J2920; J2930; J7060; P9016